=== PATIENT | female | born 1955 ===

== ENCOUNTER → 2021-02-17 09:52 | Outpatient (CLI) | payer OTHER, SELFPAY ==
[2021-02-17 20:33] LABS: COVID19 - ORCAS (NP or Nasal) Negative (Negative)
== END ==
PROVIDERS: PCP Obstetrics & Gynecology; Visit Provider Physician Assistant
DX: Z20.822 Contact with and (suspected) exposure to COVID-19 (principal)
CPT/HCPCS: C9803; U0003